=== PATIENT | female | born 1960 | race Two or more races ===

== ENCOUNTER 2021-01-12 21:15 | Inpatient (IN) | payer MEDICAID ==
[~2021-01-12] VITALS: Ht 149.9 cm; Wt 76.6 kg
[2021-01-12] MEDS ORDERED: SODIUM CHLORIDE 0.9% 1,000 ML IV ONE (22:30)
[2021-01-12] MEDS ORDERED: ONDANSETRON HCL 4 MG/2 ML VIAL IV ONE (22:30)
[2021-01-12 23:19] LABS: Basophils # (auto) 0 10 ^3/uL (0-0.2); Basophils % (auto) 0.2 % (0.0-2.0); Eosinophils # (auto) 0 10 ^3/uL (0-0.8); Hematocrit 52.1 % (36.0-46.0); Hemoglobin 18.1 g/dL (12.2-16.2); Lymphocytes # (auto) 0.4 10 ^3/uL (0.4-5.4); Lymphocytes % (auto) 4.3 % (10.0-50.0); Mean Corpuscular Hemoglobin 32.6 pg (28.0-32.0); Mean Corpuscular Hgb Conc. 34.7 g/dL (32.0-36.0); Mean Corpuscular Volume 93.8 fL (80.0-100.0); Monocytes # (auto) 0.5 10 ^3/uL (0-1.3); Monocytes % (auto) 5.3 % (0.0-12.0); Neutrophils # (auto) 8.4 10 ^3/uL (1.6-8.6); Neutrophils % (auto) 90.2 % (37.0-80.0); Nucleated Red Blood Cells % 0.1 %; Platelet Count (auto) 242 10^3/uL (140-450); Red Blood Cells 5.55 10^6/uL (4.0-5.20); Red Cell Distribution Width 13.7 % (11.8-14.3); White Blood Cell 9.3 10^3/uL (4.4-10.8)
[2021-01-12 23:35] LABS: Alanine Aminotransferase 29 U/L (13-56); Albumin 4.1 g/dL (3.4-5.0); Amylase 48 U/L (25-115); Anion Gap 11 (5-15); Aspartate Aminotransferase 17 U/L (15-37); Blood Urea Nitrogen 44 mg/dL (7-18); Calcium 8.8 mg/dL (8.5-10.1); Carbon Dioxide 22 mmol/L (21-32); Chloride 96 mmol/L (98-107); Glucose 150 mg/dL (74-106); Lipase 114 U/L (73-393); Magnesium 2.1 mg/dL (1.6-2.6); Potassium 3.6 mmol/L (3.5-5.1); Sodium 129 mmol/L (136-145)
[2021-01-12 23:38] LABS: INR 1.06 (0.9-1.15); Partial Thromboplastin Time 30.8 sec (23.0-31.2)
[2021-01-12 23:40] LABS: Alkaline Phosphatase 57 U/L (45-117); BUN/Creatinine Ratio 19.9; Bilirubin, Total 0.7 mg/dL (0.2-1.0); GFR African American 29 mL/min; GFR Non-African American 24 mL/min; Total Protein 8.4 g/dL (6.4-8.2)
[2021-01-13] MEDS ORDERED: MORPHINE SULF INJ 2 MG/ML SYRINGE 1ML IV PRN (02:00)
[2021-01-13] MEDS ORDERED: SODIUM CHLORIDE 0.9% 1,000 ML IV SCH (02:00)
[2021-01-13] MEDS ORDERED: DEXTROSE (50%) 50ML SYRG IV PRN (02:00)
[2021-01-13] MEDS ORDERED: ONDANSETRON HCL 4 MG/2 ML VIAL IV PRN (02:00)
[2021-01-13 02:31] LABS: Urine Bacteria FEW /hpf (None Seen); Urine Blood TRACE /uL (Negative); Urine Hyaline Cast FEW /lpf (0 - 2); Urine Specific Gravity 1.015 (1.001-1.035); Urine WBC 6 /hpf (0 - 5)
[2021-01-13] MEDS: ACCU-CHEK COMFORT CURVE STRIP VI SCH ×3 (05:43→17:55)
[2021-01-13] MEDS: InsuLIN REG 1unit/0.01ml Soln (100units/ml) SC SCH ×3 (05:44→17:56)
[2021-01-13 06:46] LABS: Basophils # (auto) 0 10 ^3/uL (0-0.2); Basophils % (auto) 0.2 % (0.0-2.0); Eosinophils # (auto) 0 10 ^3/uL (0-0.8); Hematocrit 46.1 % (36.0-46.0); Hemoglobin 15.9 g/dL (12.2-16.2); Lymphocytes # (auto) 0.4 10 ^3/uL (0.4-5.4); Lymphocytes % (auto) 6.5 % (10.0-50.0); Mean Corpuscular Hemoglobin 32.5 pg (28.0-32.0); Mean Corpuscular Hgb Conc. 34.5 g/dL (32.0-36.0); Monocytes # (auto) 0.4 10 ^3/uL (0-1.3); Neutrophils # (auto) 5.5 10 ^3/uL (1.6-8.6); Neutrophils % (auto) 87.3 % (37.0-80.0); Nucleated Red Blood Cells % 0.2 %; Platelet Count (auto) 191 10^3/uL (140-450); Red Cell Distribution Width 13.5 % (11.8-14.3); White Blood Cell 6.3 10^3/uL (4.4-10.8)
[2021-01-13 06:55] LABS: BUN/Creatinine Ratio 27.1; Calcium 7.8 mg/dL (8.5-10.1)
[2021-01-13] MEDS: D5W/ SOD CHL 0.9%/KCL 20MEQ 1,000 ML IV SCH (10:38)
[2021-01-13] MEDS: POTASSIUM CHL 20MEQ/100ML 100 ML IV SCH ×2 (10:39→15:43)
[2021-01-13] MEDS ORDERED: METOCLOPRAMIDE HCL 5MG/ml INJ 2ml VIAL IV SCH (14:00)
[2021-01-13] MEDS ORDERED: EMPA1TAB17 PO (16:11)
[2021-01-13] MEDS ORDERED: ATE50T PO (16:11)
[2021-01-13] MEDS ORDERED: ASPIPOW PO (16:14)
[2021-01-13 16:43] VITALS: BP 122/65
[2021-01-13 20:00] VITALS: BP 148/71
[2021-01-13] MEDS: FAMOTIDINE (10MG/ML) 2ML VL IV SCH (22:00)
[2021-01-13 23:04] VITALS: BP 148/71
[2021-01-14] MEDS: D5W/ SOD CHL 0.9%/KCL 20MEQ 1,000 ML IV SCH ×2 (00:23→05:04)
[2021-01-14] MEDS: ACCU-CHEK COMFORT CURVE STRIP VI SCH ×3 (00:23→11:45)
[2021-01-14 05:33] VITALS: BP 108/58
[2021-01-14] MEDS: InsuLIN REG 1unit/0.01ml Soln (100units/ml) SC SCH ×3 (05:58→11:46)
[2021-01-14 06:02] LABS: BUN/Creatinine Ratio 21.3; Magnesium 2.1 mg/dL (1.6-2.6)
[2021-01-14 08:49] VITALS: BP 109/61
[2021-01-14] MEDS: FAMOTIDINE (10MG/ML) 2ML VL IV SCH (08:55)
[2021-01-14] MEDS ORDERED: CHOLECALCIFEROL (VITD3) 1,000UNIT=25mCg TAB PO SCH (10:00)
[2021-01-14] MEDS ORDERED: metroNIDAZOLE 500MG/100ML 100 ML IV SCH (10:30)
[2021-01-14] MEDS ORDERED: METR500T14 PO (11:34)
[2021-01-14] MEDS ORDERED: MULTTAB75 PO (11:34)
[2021-01-14] MEDS ORDERED: OMEP-434 PO (11:34)
[2021-01-14 12:12] VITALS: BP 120/71
[2021-01-14 16:33] VITALS: BP 138/91
== END 2021-01-14 17:15 | disposition home or self-care (01) | DRG 137 ==
LOC: ER 21:17 → OVERFLOW 21:18 → EAST 01-13 13:04
PROVIDERS: ADMIT Hospitalist; ATTEND Hospitalist
DX: U07.1 COVID-19 (principal); K56.7 Ileus, unspecified; N17.9 Acute kidney failure, unspecified; E87.6 Hypokalemia; N18.9 Chronic kidney disease, unspecified; K21.9 Gastro-esophageal reflux disease without esophagitis; M19.90 Unspecified osteoarthritis, unspecified site; E66.9 Obesity, unspecified; E11.22 Type 2 diabetes mellitus with diabetic chronic kidney disease; I13.10 Hypertensive heart and chronic kidney disease without heart failure, with stage 1 through stage 4 chronic kidney disease, or unspecified chronic kidney disease; Z82.49 Family history of ischemic heart disease and other diseases of the circulatory system; Z90.49 Acquired absence of other specified parts of digestive tract; Z82.3 Family history of stroke; Z79.899 Other long term (current) drug therapy; Z68.34 Body mass index [BMI] 34.0-34.9, adult
CPT/HCPCS: 36415; 74176; 80048; 80053; 81001; 82150; 82962; 83605; 83690; 83735; 83880; 84484; 85025; 85610; 85730; 87040; 87045; 87086; 87426; 87427; 87493; 93005; 96361; 96374; G0378; J1815; J2405; J3480; J3490

== ENCOUNTER 2023-05-20 13:13 | Day surgery (SDC) | payer MEDICAID ==
[2023-05-18 10:04] LABS: Basophils # (auto) 0 10 ^3/uL (0-0.2); Basophils % (auto) 0.6 % (0.0-2.0); Eosinophils # (auto) 0 10 ^3/uL (0-0.8); Eosinophils % (auto) 0.9 % (0.0-7.0); Hemoglobin 15.4 g/dL (12.2-16.2); Lymphocytes # (auto) 2.1 10 ^3/uL (0.4-5.4); Lymphocytes % (auto) 38.9 % (10.0-50.0); Mean Corpuscular Hemoglobin 31.3 pg (28.0-32.0); Mean Corpuscular Hgb Conc. 33.4 g/dL (32.0-36.0); Mean Corpuscular Volume 93.7 fL (80.0-100.0); Monocytes # (auto) 0.4 10 ^3/uL (0-1.3); Monocytes % (auto) 7.5 % (0.0-12.0); Neutrophils # (auto) 2.8 10 ^3/uL (1.6-8.6); Neutrophils % (auto) 52.1 % (37.0-80.0); Nucleated Red Blood Cells % 0.1 %; Red Blood Cells 4.91 10^6/uL (4.0-5.20); Red Cell Distribution Width 12.3 % (11.8-14.3); White Blood Cell 5.4 10^3/uL (4.4-10.8)
[2023-05-18 10:20] LABS: INR 1.03 (0.9-1.15); Partial Thromboplastin Time 27.4 SEC (24.5-34.5)
[2023-05-18 10:48] LABS: Potassium 4.6 mmol/L (3.5-5.1)
[2023-05-18 11:01] LABS: Albumin 3.8 g/dL (3.4-5.0); Bilirubin, Total 0.6 mg/dL (0.2-1.0); Calcium 9.5 mg/dL (8.5-10.1); Total Protein 7.6 g/dL (6.4-8.2)
[~2023-05-20] VITALS: Ht 149.9 cm; Wt 84.4 kg
[~2023-05-20 13:13] MED LIST: ASPI1TAB20 PO; GLIP10TA9 PO; LOSA50TA46 PO; METF-371 PO; MULTTAB75 PO; OMEP-434 PO; SODIUM CHLORIDE LOCK 10 ML ONE
[2023-05-20 16:16] VITALS: RESP 13; O2SAT 98
[2023-05-20] MEDS: MIDAZOLAM HCL 5 MG/ML-1ML VIAL ONE ×3 (16:22→16:31)
[2023-05-20] MEDS: fentaNYL CITRATE 100 MCG/2 ML VL ONE ×2 (16:22→16:26)
[2023-05-20] MEDS: diphenhdrAMINE HCL 50 MG/1 ML VL ONE ×2 (16:22→16:23)
[2023-05-20 16:49] VITALS: TEMP 98.2; O2SAT 96
[2023-05-20 17:26] VITALS: BP 148/75; PULSE 79; RESP 22; O2SAT 96
== END 2023-05-20 17:29 | disposition home or self-care (01) ==
LOC: GI 13:13
PROVIDERS: ATTEND Internal Medicine Gastroenterology
DX: R19.4 Change in bowel habit (principal); K57.30 Diverticulosis of large intestine without perforation or abscess without bleeding; K63.5 Polyp of colon; K64.0 First degree hemorrhoids
CPT/HCPCS: 36415; 45380; 80053; 85025; 85610; 85730; J1200; J2250; J3010; 99152